=== PATIENT | male | born 1960 | race Caucasian/White ===

== ENCOUNTER 2021-11-11 08:45 | Inpatient (IN) ==
[~2021-11-11 08:45] MED LIST: Buffered Lidocaine 1% SYRIN 1 ml INTRADERM ONE; DiMENhydriNATE IV 50 mg/ml 1 ml VIAL IV PUSH PRN; HYDROmorphone 1 MG/1 ML SYRINGE IV PRN; Lactated Ringers 1000 ml BAG 1,000 ML IV SCH; Naloxone 0.4 mg VIAL 0.4 mg/ml 1 ml VIAL IV PRN; Ondansetron 4 mg VIAL 2 MG/ML 2 ml VIAL IV PRN
[2021-11-11] MEDS ORDERED: Lidocaine 1% MPF 5 ML VIAL ONE (10:02)
[2021-11-11] MEDS ORDERED: ceFAZolin 1 GM ADVAN 1 GM ADDV.VIAL IVPB ONE (10:20)
[2021-11-11] MEDS ORDERED: Dexamethasone IV 4 MG/ML VIAL 1 ml VIAL ONE ×2 (11:35→14:11)
[2021-11-11] MEDS ORDERED: Midazolam 2 mg/2 ml VIAL 1 mg/ml 2 ml VIAL (2 mg) ONE (11:35)
[2021-11-11] MEDS ORDERED: Bupivacaine 0.5% SDV PF 30ML VIAL ONE (11:43)
[2021-11-11] MEDS ORDERED: Ropivacaine 5 MG/ML 20 ML VIAL 0.5% (100 MG) ONE (12:48)
[2021-11-11] MEDS ORDERED: Propofol 10 MG/ML 20 ML BTL ONE ×2 (13:06→14:04)
[2021-11-11] MEDS ORDERED: Lidocaine 2% PF 5 ML VIAL ONE (13:06)
[2021-11-11] MEDS ORDERED: fentaNYL 250 mcg/5 ml 50 MCG/ML 5 ml VIAL (250 MCG) ONE (13:06)
[2021-11-11] MEDS ORDERED: Rocuronium 50 mg VIAL 10 mg/ml 5 ml VIAL (50 mg) ONE ×2 (13:09→13:12)
[2021-11-11] MEDS ORDERED: Acetaminophen IV 1 GM/100ML 100 ML IV ONE (13:12)
[2021-11-11] MEDS ORDERED: HYDROmorphone 0.5 MG/0.5 ML SYRINGE ONE ×3 (13:31→15:43)
[2021-11-11] MEDS ORDERED: Ondansetron 4 mg VIAL 2 MG/ML 2 ml VIAL ONE ×2 (14:11→17:20)
[2021-11-11] MEDS ORDERED: Ondansetron 4 mg VIAL 2 MG/ML 2 ml VIAL IV PRN (15:07)
[2021-11-11] MEDS ORDERED: diPHENhydraMINE 25 mg TAB PO PRN (15:07)
[2021-11-11] MEDS ORDERED: Lactulose 30 ml UDC PO PRN (15:07)
[2021-11-11] MEDS ORDERED: Ondansetron ODT 4 mg TAB 4 MG TAB PO PRN (15:07)
[2021-11-11] MEDS ORDERED: diPHENhydraMINE IV 50 MG/ML 1 ml VIAL (BENADRYL) IV PRN (15:07)
[2021-11-11] MEDS ORDERED: Magnesium Hydroxide LIQ 30 ML UDC PO PRN (15:07)
[2021-11-11] MEDS ORDERED: HYDROmorphone 1 MG/1 ML SYRINGE ONE (16:28)
[2021-11-11] MEDS: Lactated Ringers 1000 ml BAG 1,000 ML IV SCH (18:18)
[2021-11-11] MEDS: Magnesium Hydroxide LIQ 30 ML UDC PO SCH (20:27)
[2021-11-11] MEDS ORDERED: Lisinopril/HCTZ 20/12.5 TB(NF) PO SCH (21:00)
[2021-11-11] MEDS: ceFAZolin 1 GM ADVAN 1 GM in NS 0.9% 50 ML 50 ML IVPB SCH (21:43)
[2021-11-12] MEDS: Lactated Ringers 1000 ml BAG 1,000 ML IV SCH (04:48)
[2021-11-12 05:41] LABS: Hematocrit 31 % (42-52); Mean Platelet Volume 7.7 fL (7.4-10.4); Platelet Count 271 10^3/uL (150-450)
[2021-11-12] MEDS: ceFAZolin 1 GM ADVAN 1 GM in NS 0.9% 50 ML 50 ML IVPB SCH ×2 (06:04→13:49)
[2021-11-12 06:14] LABS: Calcium 8.3 mg/dL (8.6-10.3); Potassium 4.1 mmol/L (3.5-5.0); eGFR CKD-EPI 105.2 (>60)
[2021-11-12] MEDS: Magnesium Hydroxide LIQ 30 ML UDC PO SCH ×2 (08:03→20:38)
[2021-11-12] MEDS: Vitamin THERAPEUTIC TAB PO SCH (08:04)
[2021-11-12] MEDS: Aspirin EC 81 mg TAB.EC (enteric coated) PO SCH (10:38)
[2021-11-12] MEDS ORDERED: Lisinopril/HCTZ 20/12.5 TB(NF) PO SCH (21:00)
[2021-11-13 06:20] LABS: Hematocrit 27 % (42-52); Hemoglobin 9.4 g/dL (14.0-18.0); Mean Platelet Volume 7.8 fL (7.4-10.4); Platelet Count 219 10^3/uL (150-450)
[2021-11-13] MEDS ORDERED: NS 0.9% 1000 ml BAG 1,000 ML IV ONE (07:47)
[2021-11-13] MEDS: Magnesium Hydroxide LIQ 30 ML UDC PO SCH ×2 (08:52→21:44)
[2021-11-13] MEDS: Vitamin THERAPEUTIC TAB PO SCH (08:52)
[2021-11-13] MEDS: Aspirin EC 81 mg TAB.EC (enteric coated) PO SCH (13:02)
[2021-11-14 06:17] LABS: Hematocrit 27 % (42-52); Mean Platelet Volume 7.6 fL (7.4-10.4); Platelet Count 232 10^3/uL (150-450)
[2021-11-14 07:21] VITALS: BP 100/61
[2021-11-14] MEDS: Magnesium Hydroxide LIQ 30 ML UDC PO SCH (11:07)
[2021-11-14] MEDS: Vitamin THERAPEUTIC TAB PO SCH (11:07)
[2021-11-14] MEDS: Aspirin EC 81 mg TAB.EC (enteric coated) PO SCH (12:20)
== END 2021-11-14 17:05 | disposition home or self-care (01) | DRG 302 ==
LOC: AA 10:20 → INTOOBSV 10:20 → SSU 17:51
PROVIDERS: ADMIT Orthopaedic Surgery Adult Reconstructive Orthopaedic Surgery; ATTEND Orthopaedic Surgery Adult Reconstructive Orthopaedic Surgery

== ENCOUNTER 2022-09-15 11:40 | Inpatient (IN) ==
[~2022-09-15 11:40] MED LIST changes: -DiMENhydriNATE IV 50 mg/ml 1 ml VIAL IV PUSH PRN; -HYDROmorphone 1 MG/1 ML SYRINGE IV PRN; +Metoclopramide 5 MG/ML VIAL (10 mg) IV PRN
[2022-09-15] MEDS ORDERED: ceFAZolin 2 GM in NS PREMIX 2 GM/100 ML BAG IVPB ONE (12:15)
[2022-09-15] MEDS ORDERED: ceFAZolin 1 GM in Dextrose 1 GM/50 ML BAG ONE (12:15)
[2022-09-15] MEDS ORDERED: ROPIVACAINE 5 MG/ML 30 ML BTL (0.5%) ONE ×2 (13:16→13:52)
[2022-09-15] MEDS ORDERED: Lidocaine 2% PF 5 ML VIAL ONE (13:21)
[2022-09-15] MEDS ORDERED: Ondansetron 4 mg VIAL 2 MG/ML 2 ml VIAL ONE (13:21)
[2022-09-15] MEDS ORDERED: Propofol 10 MG/ML 20 ML BTL ONE ×2 (13:21→14:58)
[2022-09-15] MEDS ORDERED: Dexamethasone IV 4 MG/ML VIAL 1 ml VIAL ONE (13:21)
[2022-09-15] MEDS ORDERED: fentaNYL 100 mcg/2 ml 50 MCG/ML VIAL ONE ×4 (13:22→18:52)
[2022-09-15] MEDS ORDERED: Midazolam 2 mg/2 ml VIAL 1 mg/ml 2 ml VIAL (2 mg) ONE (13:22)
[2022-09-15] MEDS ORDERED: Morphine 10 MG/ML VIAL (1 ml) ONE (14:29)
[2022-09-15] MEDS ORDERED: Glycopyrrolate IV 0.2 MG/ML 1 ML VIAL ONE (15:13)
[2022-09-15] MEDS ORDERED: Magnesium Hydroxide LIQ 30 ML UDC PO PRN (15:30)
[2022-09-15] MEDS ORDERED: Lactulose 30 ml UDC PO PRN (15:30)
[2022-09-15] MEDS ORDERED: Ondansetron 4 mg VIAL 2 MG/ML 2 ml VIAL IV PRN (15:30)
[2022-09-15] MEDS ORDERED: Morphine 2 MG/ML SYRINGE IV PRN (15:30)
[2022-09-15] MEDS ORDERED: Ondansetron ODT 4 mg TAB 4 MG TAB PO PRN (15:30)
[2022-09-15] MEDS ORDERED: Lactated Ringers 1000 ml BAG 1,000 ML IV SCH (16:00)
[2022-09-15] MEDS ORDERED: HYDROmorphone 0.5 MG/0.5 ML SYRINGE ONE (16:27)
[2022-09-15] MEDS ORDERED: HYDROcodone/ACETAMIN 5/325 mg TAB ONE ×2 (18:00→18:02)
[2022-09-15] MEDS: HYDROcodone/ACETAMIN 5/325 mg TAB PO PRN ×2 (18:02→18:03)
[2022-09-15] MEDS: fentaNYL 100 mcg/2 ml 50 MCG/ML VIAL IV PRN ×8 (18:03→19:20)
[2022-09-15] MEDS: ceFAZolin 1 GM ADVAN 1 GM in NS 0.9% 50 ML 50 ML IVPB SCH (21:38)
[2022-09-15] MEDS: Magnesium Hydroxide LIQ 30 ML UDC PO SCH (21:38)
[2022-09-16 06:16] LABS: Hematocrit 36 % (42-52); Platelet Count 234 10^3/uL (150-450)
[2022-09-16] MEDS: ceFAZolin 1 GM ADVAN 1 GM in NS 0.9% 50 ML 50 ML IVPB SCH ×2 (06:29→15:02)
[2022-09-16 06:52] LABS: Calcium 8.1 mg/dL (8.6-10.3); Potassium 4.3 mmol/L (3.5-5.0); eGFR CKD-EPI 103.3 (>60)
[2022-09-16] MEDS: Magnesium Hydroxide LIQ 30 ML UDC PO SCH ×2 (08:38→21:03)
[2022-09-16] MEDS: Vitamin THERAPEUTIC TAB PO SCH (08:44)
[2022-09-17 06:12] LABS: Hematocrit 32 % (42-52); Hemoglobin 10.8 g/dL (14.0-18.0); Mean Platelet Volume 8.1 fL (7.4-10.4); Platelet Count 193 10^3/uL (150-450)
[2022-09-17] MEDS: Vitamin THERAPEUTIC TAB PO SCH (08:36)
[2022-09-17] MEDS: Magnesium Hydroxide LIQ 30 ML UDC PO SCH ×2 (08:37→21:47)
[2022-09-17 11:36] LABS: Calcium 7.8 mg/dL (8.6-10.3); eGFR CKD-EPI 100.9 (>60)
[2022-09-17 13:39] LABS: Urine Osmo 325 mOsm/kg (150-1150)
[2022-09-17 14:03] LABS: Osmolality Serum 290 mOsm/kg (275-295)
[2022-09-18] MEDS ORDERED: Lidocaine PATCH 5% PATCH TRANSDERM SCH (06:00)
[2022-09-18 06:13] LABS: Hematocrit 32 % (42-52); Hemoglobin 10.7 g/dL (14.0-18.0); Mean Platelet Volume 7.8 fL (7.4-10.4); Platelet Count 205 10^3/uL (150-450)
[2022-09-18] MEDS: Magnesium Hydroxide LIQ 30 ML UDC PO SCH (08:13)
[2022-09-18] MEDS: Vitamin THERAPEUTIC TAB PO SCH (08:16)
[2022-09-18 11:21] VITALS: BP 142/64
== END 2022-09-18 15:00 | disposition home or self-care (01) | DRG 302 ==
LOC: OR 11:40 → SSU 11:40 → EDSTATUS 15:45 → OBSVTOIN 20:09
PROVIDERS: ADMIT Orthopaedic Surgery Adult Reconstructive Orthopaedic Surgery; ATTEND Orthopaedic Surgery Adult Reconstructive Orthopaedic Surgery